=== PATIENT | male | born 1970 | race Caucasian/White ===

== ENCOUNTER 2017-10-30 11:07 | Outpatient (CLI) | payer OTHER | END 2017-10-30 11:37 | disposition home or self-care (01) | LOC: RAD 11:07 | DX: M25.561 Pain in right knee (principal) ==

== ENCOUNTER 2018-10-03 08:29 | Outpatient (CLI) | payer OTHER | END 2018-10-03 08:35 | disposition home or self-care (01) | LOC: LAB 08:29 | DX: E55.9 Vitamin D deficiency, unspecified (principal); E29.1 Testicular hypofunction; R11.13 Vomiting of fecal matter; R31.1 Benign essential microscopic hematuria; R97.20 Elevated prostate specific antigen [PSA] ==

== ENCOUNTER 2019-10-14 14:00 | Outpatient (CLI) | payer OTHER | END 2019-10-14 14:11 | disposition home or self-care (01) | LOC: LAB 14:00 | PROVIDERS: ATTEND General Practice | DX: N39.0 Urinary tract infection, site not specified (principal); Z00.00 Encounter for general adult medical examination without abnormal findings; E78.49 Other hyperlipidemia; E55.9 Vitamin D deficiency, unspecified; N42.0 Calculus of prostate; R05 Cough; R06.2 Wheezing; R50.9 Fever, unspecified; M54.89 Other dorsalgia ==

== ENCOUNTER 2019-11-05 12:46 | Outpatient (CLI) | payer OTHER | END 2019-11-05 13:01 | disposition home or self-care (01) | LOC: SONOGRAMA 12:46 | PROVIDERS: ATTEND Urology | DX: N40.0 Benign prostatic hyperplasia without lower urinary tract symptoms (principal); N20.1 Calculus of ureter ==

== ENCOUNTER 2021-02-17 07:23 | Outpatient (CLI) | payer OTHER | END 2021-02-17 07:27 | disposition home or self-care (01) | LOC: LAB 07:23 | PROVIDERS: ATTEND Urology | DX: N40.0 Benign prostatic hyperplasia without lower urinary tract symptoms (principal); R97.20 Elevated prostate specific antigen [PSA]; R31.1 Benign essential microscopic hematuria; R73.09 Other abnormal glucose; E03.8 Other specified hypothyroidism; E29.1 Testicular hypofunction; E55.9 Vitamin D deficiency, unspecified ==

== ENCOUNTER 2023-02-18 07:14 | Outpatient (CLI) | payer OTHER ==
[2023-02-18 08:00] LABS: HEMATOCRIT 48.3 % (39.0-48.0); HEMOGLOBIN 16.7 g/dL (13-16.00); MEAN CELL VOLUME 88.6 fL (80.0-100.00); MEAN CORPUSCULAR HEMOGLOBIN 30.6 pg (27.00-32.0); MEAN CORPUSCULAR HGB CONC 34.6 g/dl (32.0-36.0); PLATELET COUNT 241 K/uL (150-450); RED BLOOD COUNT 5.45 M/uL (4.00-6.00); RED CELL DISTRIBUTION WIDTH 13.7 % (11.5-14.5)
[2023-02-18 08:00] LABS: PH,URINE 5.5 (5.0-8.0); URINE APPEARANCE Clear; URINE BILIRRUBIN Negative (NEGATIVE); URINE BLOOD Negative; URINE COLOR Yellow; URINE LEUKOCYTE Negative; URINE NITRATE Negative; URINE PROTEIN Trace (NEGATIVE); URINE UROBILINOGEN 0.2 E.U./dl
[2023-02-18 08:03] LABS: URINE BACTERIA 6.2 uL (0.0-1933)
[2023-02-18 08:44] LABS: ALBUMIN 3.9 gm/dL (3.4-5.0); BILIRUBIN TOTAL 0.57 mg/dL (0.3-1.2); CALCIUM 9.1 mg/dL (8.5-10.1); CREATININE SERUM 1.13 mg/dL (0.70-1.30); GFR 68.41; GLOBULINA 3.7 G/DL (2.4-3.5); POTASSIUM 4.64 mEq/L (3.5-5.1); PROSTATIC SPECIFIC ANTIGEN 0.682 NG/ML (0.010-4.00); TOTAL PROTEIN 7.6 gm/dL (6.4-8.2)
[2023-02-18 08:47] LABS: URINE GLUCOSE 250 MG/DL (NEGATIVE); URINE RBC 0.4 uL (0.0-20.8); URINE WBC 1.6 uL (0.0-23.2)
== END 2023-02-18 07:15 | disposition home or self-care (01) ==
LOC: LAB 07:14
PROVIDERS: ATTEND Urology
DX: N40.0 Benign prostatic hyperplasia without lower urinary tract symptoms (principal); R97.20 Elevated prostate specific antigen [PSA]; R31.1 Benign essential microscopic hematuria

== ENCOUNTER 2023-10-23 06:49 | Outpatient (CLI) | payer OTHER ==
[2023-10-23 07:54] LABS: PH,URINE 5.5 (5.0-8.0); URINE APPEARANCE Clear; URINE BILIRRUBIN Negative (NEGATIVE); URINE BLOOD Negative; URINE COLOR Yellow; URINE KETONE Negative (NEGATIVE); URINE LEUKOCYTE Negative; URINE NITRATE Negative; URINE PROTEIN Negative (NEGATIVE); URINE UROBILINOGEN 0.2 E.U./dl
[2023-10-23 07:55] LABS: HEMATOCRIT 46.7 % (39.0-48.0); HEMOGLOBIN 16.1 g/dL (13-16.00); MEAN CELL VOLUME 87.1 fL (80.0-100.00); MEAN CORPUSCULAR HGB CONC 34.5 g/dl (32.0-36.0); PLATELET COUNT 258 K/uL (150-450); RED BLOOD COUNT 5.37 M/uL (4.00-6.00)
[2023-10-23 07:57] LABS: URINE BACTERIA 21.4 uL (0.0-1933)
[2023-10-23 07:59] LABS: URINE EPITHELIAL CELLS 0.7 uL (0.0-38.8); URINE GLUCOSE 100 MG/DL (NEGATIVE); URINE RBC 0.3 uL (0.0-20.8); URINE WBC 0.7 uL (0.0-23.2)
[2023-10-23 08:20] LABS: BILIRUBIN TOTAL 0.53 mg/dL (0.3-1.2); CALCIUM 9.2 mg/dL (8.5-10.1); CREATININE SERUM 0.97 mg/dL (0.70-1.30); GFR 81.27; GLOBULINA 3.7 G/DL (2.4-3.5); POTASSIUM 4.03 mEq/L (3.5-5.1); TOTAL PROTEIN 7.7 gm/dL (6.4-8.2)
== END 2023-10-23 14:40 | disposition home or self-care (01) ==
LOC: LAB 06:49
PROVIDERS: ATTEND Urology
DX: N40.0 Benign prostatic hyperplasia without lower urinary tract symptoms (principal); N31.1 Reflex neuropathic bladder, not elsewhere classified; E29.1 Testicular hypofunction; R23.9 Unspecified skin changes; E55.9 Vitamin D deficiency, unspecified

== ENCOUNTER 2025-01-22 10:10 | Outpatient (CLI) | payer OTHER ==
[2025-01-22 12:10] LABS: URINE APPEARANCE Clear; URINE BILIRRUBIN Negative (NEGATIVE); URINE BLOOD Negative; URINE COLOR Yellow; URINE KETONE Negative (NEGATIVE); URINE LEUKOCYTE Negative; URINE NITRATE Negative; URINE PROTEIN Trace (NEGATIVE); URINE UROBILINOGEN 0.2 E.U./dl
[2025-01-22 12:13] LABS: URINE EPITHELIAL CELLS 1.9 uL (0.0-38.8); URINE RBC 3.3 uL (0.0-20.8); URINE WBC 2.4 uL (0.0-23.2)
[2025-01-22 12:27] LABS: URINE BACTERIA 2.3 uL (0.0-1933); URINE CAST 0.00 uL (0.0-1.40); URINE GLUCOSE 100 MG/DL (NEGATIVE)
== END 2025-01-22 10:13 | disposition home or self-care (01) ==
LOC: LAB 10:10
PROVIDERS: ATTEND Urology
DX: N40.0 Benign prostatic hyperplasia without lower urinary tract symptoms (principal)

== ENCOUNTER → 2025-02-12 07:26 | Outpatient (CLI) | payer OTHER | END | disposition home or self-care (01) | LOC: LAB 07:26 | PROVIDERS: ATTEND Urology | DX: N40.0 Benign prostatic hyperplasia without lower urinary tract symptoms (principal); R73.9 Hyperglycemia, unspecified ==